=== PATIENT | male | born 2000 | race Caucasian/White ===

== ENCOUNTER 2018-06-16 12:39 | Day surgery (SDC) | payer BC, MEDICAID ==
[~2018-06-16] VITALS: Ht 182.9 cm; Wt 91.2 kg
[2018-06-16] VITALS (16 sets, daily range): BP systolic 130–142; BP diastolic 60–80; PULSE 75–102; RESP 15–16; Ht 182.9 cm; Wt 91.2 kg
[~2018-06-16 12:39] MED LIST: CEFAZOLIN 2 GM/50 ML (PMX) 50 ML IVPB ONE; LACTATED RINGER'S 1,000 ML IV* SCH
--- NOTE | 2018-06-16 14:44 | HPN ---
Date/Time of Note Date/Time of Note DATE: 06/16/18 TIME: 14:44 Interval H&P Admission Note Pt. seen H&P reviewed: No system changes KRISSY HOOVER Jun 16, 2018 14:44
--- NOTE | 2018-06-16 14:45 | PREAC ---
Date/Time of Note Date/Time of Note DATE: 06/16/18 TIME: 14:43 Anesthesia Eval and Record Evaluation Time Pre-Procedure Interview DATE: 06/16/18 TIME: 14:43 Age 18 Sex male NPO: 8 hrs Preoperative diagnosis LEFT ELBOW DERANGEMENT Planned procedure LEFT ELBOW LIGAMENT RECONSTRUCTION Past Medical History Past Medical History: None Surgery & Anesthesia Issues No known issue Meds Anticoagulation: No Beta Elisa within 24 hr: No Reason Beta Elias not given: Pt. not on B-Elias No Active Prescriptions or Reported Meds Current Medications Lactated Ringer's 1,000 ml @ 25 mls/hr Q24H IV* Last administered on 06/16/18at 13:45; Admin Dose 25 MLS/HR; Start 06/16/18 at 07:00 Meds reviewed: Yes Allergies Coded Allergies: No Known Allergy (Unverified , 06/16/18) Allergies Reviewed: Yes Labs/Studies Labs Reviewed: Reviewed by anesthesiologist test: N/A Pre-procedure Exam Last vitals Vital Signs Date Temp Pulse Resp B/P (MAP) Pulse Ox O2 O2 Flow FiO2 Time Delivery Rate 06/16/18 99.0 75 16 130/63 97 Room Air 13:46 (85) Airway: Adequate mouth opening, Adequate thyromental dist Mallampati: Mallampati I Teeth: Normal Lung: Normal Heart: Normal ASA Physical Status ASA physical status: 1 Emergency: None Planned Anesthetic Nerve block: Brachial plexus (left) Planned Pain Management Single shot nerve block, Parenteral pain med Pre-operative Attestations Prior to commencing anesthesia and surgery, the patient was re-evaluated, there was verification of: *The patient's identity *The results of appropriate recent lab work and preoperative vital signs *The above evaluation not changing prior to induction *Anesthetic plan, risk benefits, alternative and complications discussed with patient/family; questions answered; patient/family understands, accepts and wishes to proceed. WOOD REDDY Jun 16, 2018 14:45
[2018-06-16] MEDS ORDERED: GLYCOPYRROLATE 0.4 MG INJ ONE ×2 (14:49→17:05)
[2018-06-16] MEDS ORDERED: BUPIVACAINE 0.5% (SDV) 30 ML INJ ONE (14:49)
[2018-06-16] MEDS ORDERED: PROPOFOL 200 MG INJ ONE (14:49)
[2018-06-16] MEDS ORDERED: ROCURONIUM 50 MG INJ ONE (14:49)
[2018-06-16] MEDS ORDERED: SEVOFLURANE 15 MIN ONE (14:49)
[2018-06-16] MEDS ORDERED: CEFAZOLIN 1 GM INJ ONE (14:49)
[2018-06-16] MEDS ORDERED: LIDOCAINE 2% (SDV) 5 ML INJ ONE (14:49)
[2018-06-16] MEDS ORDERED: ONDANSETRON 4 MG INJ ONE (15:59)
[2018-06-16] MEDS ORDERED: KETOROLAC 30 MG INJ ONE (15:59)
[2018-06-16] MEDS ORDERED: DEXAMETHASONE 4 MG/ML 5 ML INJ ONE (15:59)
[2018-06-16] MEDS ORDERED: NEOSTIGMINE 10 MG INJ ONE (17:05)
--- NOTE | 2018-06-16 17:17 | PAC ---
Date/Time of Note Date/Time of Note DATE: 06/16/18 TIME: 17:17 Post-Anesthesia Notes Post-Anesthesia Note Last documented vital signs Vital Signs Date Temp Pulse Resp B/P (MAP) Pulse Ox O2 O2 Flow FiO2 Time Delivery Rate 06/16/18 99.0 75 16 130/63 97 Room Air 1716 (85) Activity: WNL Respiratory function: WNL Cardiovascular function: WNL Mental status: Baseline Pain reasonably controlled: Yes Hydration appropriate: Yes Nausea/Vomiting absent: Yes WOOD REDDY Jun 16, 2018 17:17
[2018-06-16] MEDS ORDERED: ALBUTEROL 0.083% (NEB) 2.5 MG/3 ML AMP HHN PRN (17:30)
[2018-06-16] MEDS ORDERED: ONDANSETRON 4 MG INJ IV PRN (17:30)
[2018-06-16] MEDS ORDERED: METOCLOPRAMIDE 10 MG INJ IV PRN (17:30)
[2018-06-16] MEDS ORDERED: hydrALAzine 20 MG INJ IV PRN (17:30)
[2018-06-16] MEDS ORDERED: FENTAnyl 50 MCG/ML VIAL IV PRN ×3 (17:30)
[2018-06-16] MEDS ORDERED: EPHEDrine SULFATE 50 MG/5 ML SYG IV PRN (17:30)
[2018-06-16] MEDS ORDERED: LABETALOL HCL 20MG INJ IV PRN (17:30)
[2018-06-16] MEDS ORDERED: HYDROmorphONE 1 MG/5 ML IV SYRINGE IV PRN ×3 (17:30)
[2018-06-16] MEDS ORDERED: KETOROLAC 30 MG INJ IV PRN (17:30)
[2018-06-16] MEDS ORDERED: MEPERIDINE 25 MG INJ IV PRN (17:30)
[2018-06-16] MEDS ORDERED: OXYCODONE/ACETAMINOPHEN (5/325) TAB PO PRN ×2 (17:30)
[2018-06-16] MEDS ORDERED: DIPHENHYDRAMINE 50 MG INJ IV PRN (17:30)
--- NOTE | 2018-06-16 18:58 | OPPN ---
Date/Time of Note Date/Time of Note DATE: 06/16/18 TIME: 18:57 Operative Report Preoperative Diagnosis left elbow ulnar collateral ligament rupture left elbow cubital tunnel syndrome Postoperative Diagnosis left elbow ulnar collateral ligament rupture left elbow cubital tunnel syndrome Operation/Procedure Performed left elbow ulnar collateral ligament reconstruction harvest of palmaris longus tendon autograft left elbow cubital tunnel release Surgeon see signature line cafeteria assistant none Anesthesia: general Estimated blood loss: 0 - 10 ml's Transfusion Required none Specimen none Grafts/Implants none Complications none KRISSY HOOVER Jun 16, 2018 18:58
--- NOTE | 2018-06-16 19:21 | OPR ---
DATE OF OPERATION: 06/16/2018 SURGEON: Jonah Devi MD ANESTHESIA: Peripheral nerve block plus general. PREOPERATIVE DIAGNOSES: 1. Left elbow ulnar collateral ligament rupture. 2. Left elbow cubital tunnel syndrome. POSTOPERATIVE DIAGNOSES: 1. Left elbow ulnar collateral ligament rupture. 2. Left elbow cubital tunnel syndrome. PROCEDURES: 1. Left elbow ulnar collateral ligament reconstruction. 2. [place] of left wrist and forearm palmaris longus tendon autograft. 3. Left ulnar nerve decompression at the elbow. INDICATION FOR PROCEDURE: This is a 18-year-old male with injury to the left elbow. 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 I discussed the options and t he patient elected to proceed with surgical intervention, understanding risks and benefits. DESCRIPTION OF PROCEDURE: The patient was seen in the preoperative area. All further questions were answered. Again, he gave informed consent, understanding risks and benefits. He was taken to opera tive suite and placed in supine position. He was placed under general anesthesia and tourniquet was placed in left upper extremity. Left upper extremity was prepped with ChloraPrep stick and draped in usual sterile fashion. Esmarch bandage was used to exsanguinate the extremity and tourniquet was in flated to 250 mmHg. A curvilinear incision was made over the medial aspect of the left elbow with sh patience dissection carried down through skin and subcutaneous tissue. Attention was first turned to the ulnar nerve decompression and the ulnar nerve was identified deep to Dobbs's ligament and was decom pressed proximally past the intermuscular septum. It was decompressed distally deep to the FCU muscu lature. The nerve was then retracted posteriorly and attention was turned to the ulnar collateral li gament reconstruction. The common flexor mass was divided longitudinally and the sublime tubercle wa s identified at the proximal ulna. The [place] ulnar collateral ligament was identified and there was laxity. Two 3.5 mm drill holes were made converging at the proximal ulna and this was made at the a natomic insertion of the ulnar collateral ligament. A 4.5 mm drill hole was made at the anterior inf erior aspect of the medial epicondyle and then diverging 1.5 mm drill holes were made proximally to c omplete bone tunnels through the medial epicondyle. Attention was then turned to the palmaris longus tendon autograft and multiple stab incisions at the volar left wrist were utilized with sharp dissec tion carried down through skin and subcutaneous tissue. The palmaris longus tendon was identified an d was freed up proximally. It was then brought out through the wound distally and transected distall y. The wounds were copiously irrigated and skin was closed with 4-0 nylon. The tendon graft was the n brought to the elbow and a grasping stitch was made into the one end of the tendon. The suture was brought through the drill holes in the proximal ulna and the graft was looped over a bone bridge. T he suture was then brought through the medial epicondyle and tensioned proximally. Another grasping stitch was placed into the other end of the tendon graft and this was brought through the diverging d rill hole in the medial epicondyle. The elbow was placed with varus stress and was placed at 30 degr ees of flexion. The sutures were tensioned proximally and there was excellent tension on the tendon autograft and ulnar collateral ligament reconstruction. The sutures were tied tightly and the elbow was gently ranged and there was found to be excellent symmetric stability of the ulnar collateral lig ament reconstruction. The wound was copiously irrigated and skin closed with 4-0 nylon. The ulnar n erve was stable behind the groove at the medial epicondyle. After skin was closed with 4-0 nylon, Xe roform was placed over wound followed by sterile gauze, Webril and a long arm splint with the elbow a t 45 degrees of flexion. Tourniquet was deflated after 94 minutes and the patient was awakened from anesthesia. He was taken to postoperative suite in stable condition, tolerated the procedure well wi thout complication. SPECIMENS: None. ESTIMATED BLOOD LOSS: 5 mL. COUNTS: Sponge, instrument, needle counts were correct. TOURNIQUET TIME: 94 minutes. CONDITION ON DISCHARGE: Stable. The patient was given a nonrefillable 5-day prescription for pain medication for surgery today. Dictated By: JONAH GRIGSBY/LEONID Conf#: [id number] DID#: [id number]
== END 2018-06-16 18:55 | disposition home or self-care (01) ==
LOC: SDS 12:39
PROVIDERS: ATTEND Orthopaedic Surgery Hand Surgery
DX: S53.442D Ulnar collateral ligament sprain of left elbow, subsequent encounter (principal); X58.XXXD Exposure to other specified factors, subsequent encounter; G56.22 Lesion of ulnar nerve, left upper limb
CPT/HCPCS: 24346; 64718; J0690; J1100; J1885; J2405; J2710; J3010; Z7512; Z7610